=== PATIENT | female | born 1980 | race Hispanic/Latino ===

== ENCOUNTER 2018-07-11 08:50 | Day surgery (SDC) | payer OTHER ==
[~2018-07-11] VITALS: Ht 160 cm; Wt 77.1 kg
--- NOTE | 2018-07-11 10:35 | NUR ---
07/11/18 1035 Mony Yousif 1029-PATIENT ARRIVED TO PACU ON 10L MASK NONAROUSABLE ORAL AIRWAY IN PLACE. ABDOMEN SOFT LAYING LEFT LATERAL SR. RR EVEN. 1025-PLACED ON 6L MASK
--- NOTE | 2018-07-12 08:24 | OR ---
[facility] [address] [place], [place] [address] Signed DATE OF OPERATION: 07/11/2018 SURGEON: Autumn Bah MD PREOPERATIVE DIAGNOSES: 1. Rectal bleeding. 2. Hemorrhoids. POSTOPERATIVE DIAGNOSES: 1. Small circumferential external hemorrhoids. 2. Prxxj-fy-tyvrkqvz sized internal hemorrhoid x1. PROCEDURE: Colonoscopy without biopsy. ESTIMATED BLOOD LOSS: None. INDICATIONS: Bethany is a 38-year-old woman who speaks broken South Korean. She had come to my office with her sister after consulting with her primary care provider. In the last 6 months, she has had some intermittent rectal bleeding associated with bowel movements. She feels some hemorrhoids and some perianal irritation. PHYSICAL EXAMINATION: She has some small external hemorrhoids. At the 5 o'clock position, she had some irritation to one of her external hemorrhoids and I suspect that is the hemorrhoid that was bleeding. She had good sphincter tone. Not much in the way of internal hemorrhoids. I explained to Bethany and her sister she really needs a full colonoscopy to make sure nothing other than the hemorrhoids could be a source of her bleeding. I had given them [employer] brochures on endoscopy and hemorrhoids written both in Hebrew and South Korean. We went through that together in detail. We also gave them written instructions for a bowel prep in South Korean and Hebrew. She understands that quite well. Also, she has a congenital bicuspid aortic valve resulting in her aortic stenosis. She is getting close to where she might need surgery. However, she declined to go see the thoracic surgeon. Consequently, we tracked down her records and we also had her do a preop with our anesthesia providers. Her left ventricular ejection fraction is preserved. We also reviewed the risks of the procedure including, but not limited to gas bloating, crampy abdominal pain, bleeding, perforation, requiring surgery, and missed diagnosis. They had expressed understanding wished to proceed. Electronically Signed By: AUTUMN BAH MD 07/12/18 0824 PATIENT NAME: BRADY SWEENEY OPERATIVE REPORT DATE OF : 76 REPORT #: [id number] PHYSICIAN: AUTUMN BAH MD PCP: DELMY BIGGS MD REPORT IS CONFIDENTIAL AND NOT TO BE RELEASED WITHOUT AUTHORIZATION [facility] [address] [place] [id number] Signed PROCEDURE NOTE: Brady whiteside was taken into our endoscopy suite and placed in the left lateral decubitus position. She was given IV sedation with propofol per our nurse health policy nurse. A digital rectal exam was repeated and again she has small circumferential external hemorrhoids. At the 5 o'clock position, her external hemorrhoid is not irritated on this occasion. Again, she has good sphincter tone. No masses. The adult colonoscope was introduced and advanced all around into the cecum under direct visualization of camera without difficulty. Her prep was good. The scope was slowly withdrawn. We took pictures throughout for photodocumentation. Once in the rectum, the scope had been retroflexed and she does have just a single moderate internal hemorrhoid column. No evidence of any irritation or bleeding currently. No diverticulosis and no polyps. After this, the gas was suctioned out and the colonoscope removed. Bethany tolerated the procedure quite well. RECOMMENDATIONS: Bethany is welcome to return to my office in 10 years for repeat screening colonoscopy. She wants to return to discuss further options regarding her hemorrhoid. She is more than welcome to call the office and do that as well. Autumn Bah MD ALB/MODL /[id number] cc: MD Keaton Hernandez MD Amy Nguyen, MD Copies: RICHMOND OWENS MD, JUAN A MD Electronically Signed By: AUTUMN BAH MD 07/12/18 0824 PATIENT NAME: BRADY SWEENEY OPERATIVE REPORT DATE OF : 76 REPORT #: [id number] PHYSICIAN: AUTUMN BAH MD PCP: DELMY BIGGS MD REPORT IS CONFIDENTIAL AND NOT TO BE RELEASED WITHOUT AUTHORIZATION [address] [address] Signed DELMY BIGGS MD ~ Electronically Signed By: AUTUMN BAH MD 07/12/18 0824 PATIENT NAME: ELEANOR LAMBBRADY LAMAS OPERATIVE REPORT DATE OF : 76 REPORT #: [id number] PHYSICIAN: AUTUMN BAH MD PCP: DELMY BIGGS MD REPORT IS CONFIDENTIAL AND NOT TO BE RELEASED WITHOUT AUTHORIZATION
== END 2018-07-11 11:15 | disposition home or self-care (01) ==
LOC: OPS 08:50 → DS 08:50 → OPS 09:45 → DS 09:45 → OPS 11:15
PROVIDERS: Colon & Rectal Surgery
PROC: 0DJD8ZZ Inspection of Lower Intestinal Tract, Via Natural or Artificial Opening Endoscopic (ICD-10-PCS; principal; 2018-07-11 09:45)
DX: K64.8 Other hemorrhoids (principal); K64.4 Residual hemorrhoidal skin tags; Z95.3 Presence of xenogenic heart valve
CPT/HCPCS: J2704; J7120

== ENCOUNTER 2018-08-10 06:45 | Day surgery (SDC) | payer SELFPAY ==
[~2018-08-10] VITALS: Ht 160 cm; Wt 77.1 kg
--- NOTE | 2018-08-10 09:36 | NUR ---
08/10/18 0935 Maria De Jesus Beard 0922 PT ARRIVED TO PACU ON RA. PT AWAKE AND TALKING TO RN. 0925 PT FAMILY AT BEDSIDE. PT SIPPING WATER AND HOB INCREASED, PT DENIES NAUSEA AND PAIN. 0934 MD AT BEDSIDE TALKING TO PT AND FAMILY.
--- NOTE | 2018-08-10 19:31 | OR ---
[facility] [address] [place], [place] [address] Signed DATE OF OPERATION: 08/10/2018 SURGEON: Autumn Bah MD PREOPERATIVE DIAGNOSIS: Internal and external hemorrhoids at the 5 o'clock position. POSTOPERATIVE DIAGNOSES: 1. Internal and external hemorrhoids at the 5 o'clock position. 2. External hemorrhoid at the 1 o'clock position. PROCEDURES: 1. Internal and external hemorrhoidectomy at the 5 o'clock position. 2. External hemorrhoidectomy at 1 o'clock position. ESTIMATED BLOOD LOSS: None. INDICATIONS: Evangelina is a 38-year-old female who speaks limited Zambian. Consequently, her family always comes with her to help interpret. They have actually done a great job. She has been having trouble with an internal and external hemorrhoid at the 5 o'clock position. It frequently swells and bleeds and pops in and out when she goes to the bathroom. She said it has become quite problematic. Her colonoscopy was unremarkable. She had returned because of ongoing bleeding and swelling. She had asked to have that hemorrhoid removed. She had mentioned a second hemorrhoid in our preop area. I explained to Evangelina and her family that I would inspect the anal canal once again in the OR. She also has a congenital bicuspid aortic valve with aortic stenosis. We did have her see our anesthesia providers preoperatively along with her blood work. We also have her records from her band attacher. In the office, I gave her a [employer] brochure on hemorrhoids, written in both Zambian and Irish. We looked at that very carefully. We have been over this multiple times. She understands we are going to physically excise the hemorrhoids. We will use dissolvable suture for the internal component, but the external component would be left open to heal on secondarily. In addition, I have explained to Evangelina and her family that this is very painful surgery, particularly in the first week or two. By the end of 4 weeks, they feel much better and by the end of 8 weeks, they are well on their way. Consequently, she will need narcotic-level pain medication afterwards and then transition over to NSAIDs and Tylenol. We also reviewed the need for Vaseline with bowel movements as well as Balneol lotion to be used twice a day around the anus. She can shower and bathe after bowel movements and as needed for Electronically Signed By: AUTUMN BAH MD 08/10/18 193 PATIENT NAME: ELEANOR WEINBERG MA EVANGELINA OPERATIVE REPORT DATE OF : 76 REPORT #: [id number] PHYSICIAN: AUTUMN BAH MD PCP: KSENIA BIGGS MD REPORT IS CONFIDENTIAL AND NOT TO BE RELEASED WITHOUT AUTHORIZATION [facility] [address] [place], [place] [address] Signed pain as many times a day she needs to, which helps significantly. I have also asked to use some Benefiber twice a day to keep the stools soft. We have reviewed the surgery now several times. She understands there is a risk including, but not limited to bleeding, infection, scarring, change in contour of the skin, anal stenosis, and recurrent hemorrhoids. She has expressed her understanding and would like to proceed. PROCEDURE NOTE: I met with Evangelina and her family including her in our preop area. We went over this once again. Again, her family does an excellent job helping to interpret. Evangelina had a saddle block placed by our nurse hide washer. After this, Evangelina was taken into the operating room and placed in the prone gilberto-knife position with appropriate padding and monitoring. She was under monitored anesthesia care. She received preoperative antibiotics along with her SCDs. After the saddle block, she did receive her subcutaneous heparin. She was then prepped and draped in the usual sterile fashion. The entire anal canal was reinspected with the help of the half-tompkins retractor. Again, she has an internal and external hemorrhoid at the 5 o'clock position and just a small external hemorrhoid at 1 o'clock position. We removed both with the help of the cautery with direct visualization and protection of the underlying sphincter muscles. At the 1 o'clock position, we left that external hemorrhoid open to heal on secondarily. At the 5 o'clock position, we did use 2-0 chromic at the apex of the hemorrhoid and we did a running lock stitch down to the level of the dentate line and we left the external component open to heal on secondarily. After this, local anesthetic was injected as a field block around the anus. Dry gauze was applied along with some mesh underwear. Evangelina was then rotated into the supine position on her hospital bed and taken to recovery room in stable condition. Autumn Bah MD ALB/MODL /[id number] cc: MD Ksenia Iglesias MD Stephen Ewer, MD Electronically Signed By: AUTUMN BAH MD 08/10/18 1931 PATIENT NAME: BRADY SWEENEY OPERATIVE REPORT DATE OF : 76 REPORT #: [id number] PHYSICIAN: AUTUMN BAH MD PCP: KSENIA BIGGS MD REPORT IS CONFIDENTIAL AND NOT TO BE RELEASED WITHOUT AUTHORIZATION [facility] [address] [place], [place] [address] Signed Keaton Jacques MD Copies: AUTUMN BAH MD, AMY MD EWER, STEPHEN MD CORDERO, JUAN A MD ~ Electronically Signed By: AUTUMN BAH MD 08/10/181930 PATIENT NAME: BRADY SWEENEY OPERATIVE REPORT DATE OF : 76 REPORT #: [id number] PHYSICIAN: AUTUMN BAH MD PCP: KSENIA BIGGS MD REPORT IS CONFIDENTIAL AND NOT TO BE RELEASED WITHOUT AUTHORIZATION
== END 2018-08-10 10:28 | disposition home or self-care (01) ==
LOC: DS 06:45
PROVIDERS: Colon & Rectal Surgery
PROC: 06LY0ZC Occlusion of Hemorrhoidal Plexus, Open Approach (ICD-10-PCS; principal; 2018-08-10 08:15)
DX: K64.8 Other hemorrhoids (principal); K64.4 Residual hemorrhoidal skin tags
CPT/HCPCS: 00902; J0690; J1644; J1885; J2250; J2704; J7120

== ENCOUNTER 2019-07-02 03:10 | Emergency (ER) | payer BC, OTHER ==
[~2019-07-02] VITALS: Ht 160 cm; Wt 79.8 kg
[2019-07-02] MEDS ORDERED: LISINOPRIL2.5 MG PO (03:30)
[2019-07-02] MEDS ORDERED: ASPIRIN81 MG PO (03:31)
[2019-07-02] MEDS ORDERED: WARFARIN SODIUM5 MG PO (03:31)
[2019-07-02] MEDS ORDERED: METOPROLOL TART25 MG PO (03:31)
[2019-07-02] MEDS ORDERED: ACETAMINOPHEN500 MG PO (03:32)
[2019-07-02] MEDS ORDERED: FERROUS SULFAT325 MG PO (03:33)
[2019-07-02] MEDS ORDERED: OXYCODONE HCL5 MG PO (03:34)
== END 2019-07-02 04:50 | disposition home or self-care (01) ==
LOC: ED 03:10
DX: M75.21 Bicipital tendinitis, right shoulder (principal); Z79.899 Other long term (current) drug therapy; Z98.890 Other specified postprocedural states
CPT/HCPCS: 71046; 99283-25